=== PATIENT | female | born 1990 | race Asian ===

== ENCOUNTER 2020-01-16 13:41 | Outpatient (CLI) | payer BC | END 2020-01-16 19:29 | disposition home or self-care (01) | LOC: RAD 13:41 | DX: M54.17 Radiculopathy, lumbosacral region (principal) ==

== ENCOUNTER 2021-05-09 13:40 | Emergency (ER) | payer BC ==
[2021-05-23 11:21] LABS: PLATELET COUNT 323 K/uL (152-353)
[2021-05-23 11:23] LABS: POTASSIUM 3.9 mmol/L (3.6-5.2); SODIUM 136 mmol/L (136-145)
== END 2021-05-09 16:19 | disposition home or self-care (01) ==
LOC: ED 13:40
PROVIDERS: Family Medicine
DX: R07.89 Other chest pain (principal); R11.2 Nausea with vomiting, unspecified; R51.9 Headache, unspecified; E86.0 Dehydration; R00.0 Tachycardia, unspecified
CPT/HCPCS: 80053; 84484; 85027; 93005; 96360; 96375; 99284

== ENCOUNTER 2021-05-12 09:15 | Outpatient (CLI) | payer OTHER ==
[~2021-05-12] VITALS: Ht 160 cm; Wt 86.2 kg
[2021-05-25 06:35] LABS: POTASSIUM 3.9 mmol/L (3.6-5.2)
== END 2021-05-12 12:00 | disposition home or self-care (01) ==
LOC: INF 09:15
PROVIDERS: ATTEND Family Medicine
DX: R42 Dizziness and giddiness (principal); E78.1 Pure hyperglyceridemia
CPT/HCPCS: 36415; 36591; 80053; 80061; 82306; 82607; 84443; 84481; 96360; J0696; J1885; J2405